=== PATIENT | male | born 1990 | race Caucasian/White ===

== ENCOUNTER 2020-07-19 01:11 | Emergency (ER) | payer OTHER ==
[~2020-07-19] VITALS: Ht 175.3 cm; Wt 79.4 kg
[2020-07-19 01:18] VITALS: BP 147/86
[2020-07-19] MEDS ORDERED: LIDOCAINE 1%-EPI 1:100,000 20 ML VIAL TP ONE (01:30)
[2020-07-19] MEDS ORDERED: TDAP [DIPH/PERTUSSIS/TET] 0.5 ML VIAL IM ONE ×2 (01:30→02:18)
[2020-07-19] MEDS ORDERED: LIDOCAINE MPF 1%-EPI 1:200,000 30 ML VIAL IJ ONE (01:32)
[2020-07-19] MEDS ORDERED: ACETAMINOPHEN 325 MG TABLET ONE (02:17)
[2020-07-19] MEDS ORDERED: ACETAMINOPHEN 325 MG TABLET PO ONE (02:30)
[2020-07-19] MEDS ORDERED: KETOROLAC TROMETHAMINE INJ 60 MG/2 ML VIAL IM ONE ×2 (02:46→03:00)
--- NOTE | 2020-07-19 02:53 | NUR ---
Patient discharged to home in stable condition. Written and verbal after care instructions given. Patient verbalizes understanding of instruction.
== END 2020-07-19 03:50 | disposition home or self-care (01) ==
LOC: ER 01:13
DX: S01.81XA Laceration without foreign body of other part of head, initial encounter (principal); W22.8XXA Striking against or struck by other objects, initial encounter; Y93.89 Activity, other specified; Y92.89 Other specified places as the place of occurrence of the external cause; Y99.8 Other external cause status
CPT/HCPCS: 12053; 70450; 90471; 90715; 96372; 99284; J1885; J3490

== ENCOUNTER 2021-12-10 12:55 | Inpatient (IN) | payer OTHER ==
[~2021-12-10] VITALS: Ht 175.3 cm; Wt 69.9 kg
--- NOTE | 2021-12-10 12:55 | NUR ---
PT BIBRA 99 FROM HOME C/O OVERDOSE UNKNOWN DRUG POSSIBLY QUETIAPINE AND BUPROPION. PT IS AAOX0, NOT IN RESPIRATORY DISTRESS, HOOKED TO V/S MONITOR, KEPT RESTED AND OCMFORTABLE. SITTER AT BEDSIDE FOR 1 TO 1. WILL CONTINUE TO MONITOR.
--- NOTE | 2021-12-10 13:02 | NUR ---
SEEN AND EXAMINED BY .
--- NOTE | 2021-12-10 13:15 | NUR ---
IV LINE ESTABLISHED BLOOD DRAWN AND SENT TO LAB.
[2021-12-10] MEDS ORDERED: SODIUM BICARBONATE SYR 50 MEQ/50 ML DISP.SYRIN ONE ×3 (13:18→14:28)
--- NOTE | 2021-12-10 13:24 | NUR ---
URINE SPECIMEN COLLECTED AND SENT TO LAB.
[2021-12-10] MEDS ORDERED: SODIUM BICARBONATE SYR 50 MEQ/50 ML DISP.SYRIN IV ONE ×3 (13:30→14:30)
[2021-12-10 13:45] LABS: BASOPHILS # (AUTO) 0.1 K/uL (0.0-0.2); BASOPHILS % (AUTO) 0.6 % (0.0-2.0); EOSINOPHILS % (AUTO) 0.1 % (0.0-6.0); HEMATOCRIT 46 % (39-51); HEMOGLOBIN 15.9 g/dL (13.5-17.5); LYMPHOCYTES # (AUTO) 1.8 K/uL (0.8-4.8); LYMPHOCYTES % (AUTO) 19.7 % (20.0-44.0); MEAN CORPUSCULAR HGB CONC 35 g/dl (31.0-36.0); MEAN CORPUSCULAR VOLUME 92 fL (80-96); MONOCYTES # (AUTO) 0.4 K/uL (0.1-1.30); MONOCYTES % (AUTO) 4.9 % (2.0-12.0); NEUTROPHILS # (AUTO) 6.7 K/uL (1.8-8.9); NEUTROPHILS % (AUTO) 74.7 % (43.0-81.0); PLATELET COUNT (AUTO) 420 K/uL (150-450); RED BLOOD CELL COUNT(AUTO) 4.97 MIL/uL (4.5-6.0)
[2021-12-10 13:53] LABS: BILIRUBIN,URINE NEGATIVE (NEGATIVE); COLOR,URINE YELLOW (YELLOW); LEUKOCYTE ESTERASE ,URINE NEGATIVE (NEGATIVE); NITRITE, URINE NEGATIVE (NEGATIVE); PROTEIN,URINE NEGATIVE (NEGATIVE); UGLUCOSE NEGATIVE (NEGATIVE); UROBILINOGEN,URINE 0.2 EU/dL (0.2)
[2021-12-10 13:54] LABS: RBC,URINE NONE SEEN /HPF (0-2); SQUAMOUS EPITHELIAL CELL,UR None Seen /HPF (None Seen); WBC,URINE NONE SEEN /HPF (0-3)
[2021-12-10] MEDS ORDERED: LORAZEPAM INJ 2 MG/ML VIAL ONE ×2 (14:04→14:29)
[2021-12-10 14:09] LABS: CALCIUM, SERUM 9.5 mg/dL (8.5-10.1); CREATININE 1.2 mg/dL (0.6-1.3); POTASSIUM 3.7 mmol/L (3.5-5.1)
--- NOTE | 2021-12-10 14:14 | NUR ---
CALLED POISON CONTROL AND SPOKE WITH YUSUF. SHE RECOMMENDS CONTINOUSLY MONITORING FOR 24 HOURS, GIVING BENZO MEDICATION FOR THE AGITATION, GIVING SODIUM BICARB AND REPEATING EKGS AFTER EACH DOSE. STOP AFTER 3 DOSES OF SODIUM BICARB. CONTINOUSLY REPEAT EKGS EVERY 2 HOURS. IF ARRHYTHMIA DEVELOPS OR QRSd BECOMES 130-140, CALL BACK POISON CONTROL FOR ADDITIONAL AND ALTERNATIVE ADVICE.
[2021-12-10 14:15] LABS: ALBUMIN 4.5 g/dL (3.4-5.0); BILIRUBIN,DIRECT 0.1 mg/dL (0.0-0.2); BILIRUBIN,TOTAL 0.5 mg/dL (0.2-1.0); TOTAL PROTEIN, SERUM 7.6 g/dL (6.4-8.2)
--- NOTE | 2021-12-10 14:26 | NUR ---
COVID TEST COLLECTED AND SENT
[2021-12-10] MEDS ORDERED: LORAZEPAM INJ 2 MG/ML VIAL IV ONE ×2 (14:30)
--- NOTE | 2021-12-10 14:41 | NUR ---
POISON CONTROL CALLED AND SUGGESTED A HEAD CT AND CPK BECAUSE PT WAS FOUND DOWN AND IS AGITATED.
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
--- NOTE | 2021-12-10 15:28 | NUR ---
SUBMITTED MOVE PACKET AND CALLED NURSING SUP FOR BED
--- NOTE | 2021-12-10 15:32 | NUR ---
RT AT BEDSIDE
[2021-12-10 15:53] LABS: ABG BASE EXCESS 0.2 mmol/L; ABG PCO2 29.9 mmHg (35.0-45.0); ABG PH 7.491 (7.350-7.450); ABG PO2 93.4 mmHg (75.0-100.0); COHb 0.6 % (0.5-1.5); MetHb 0.2 % (0.0-1.5); O2Hb 96.9 % (94.0-97.0); SITE, ABG Other; VENT MODE, BG ROOM AIR
--- NOTE | 2021-12-10 16:10 | NUR ---
RT VENOUS BLOOD GAS DONE, BLOOD SAMPLE DRAWN BY RN. RESULTS GIVEN TO DR SALMERON.
[2021-12-10] MEDS ORDERED: MAG HYDROX/AL HYDROX/SIMETH 30 ML UDC PO PRN (17:00)
[2021-12-10] MEDS ORDERED: LORAZEPAM INJ 2 MG/ML VIAL IV PRN (17:00)
[2021-12-10] MEDS ORDERED: Z GUARD REMEDY 4 OZ OINT TP PRN (17:00)
[2021-12-10] MEDS ORDERED: IV NS 0.9% 1,000 ML IV PRN (17:00)
[2021-12-10] MEDS ORDERED: ACETAMINOPHEN 325 MG TABLET PO PRN (17:00)
[2021-12-10] MEDS ORDERED: ONDANSETRON HCL/PF 4 MG/2 ML VIAL IVP PRN (17:00)
--- NOTE | 2021-12-10 17:33 | NUR ---
FATHER, ERA CALLED AND GIVEN UPDATES RE PATIENT STATUS
--- NOTE | 2021-12-10 17:38 | NUR ---
SWALLOW TEST CONDUCTED, PT ABLE TO FOLLOW COMMANDS AND TOLERATED WATER WELL.
[2021-12-10] MEDS ORDERED: DIVALPROEX SODIUM 500 MG TABLET.DR PO ONE (17:42)
[2021-12-10] MEDS: DIVALPROEX SODIUM 500 MG TABLET.DR PO SCH (17:44)
[2021-12-10] MEDS: IV NS 0.9% 1,000 ML IV PRN (19:22)
--- NOTE | 2021-12-10 20:04 | NUR ---
CALLED NURSE SUP FOR ICU BED, NO BED IS AVAILABLE FOR NOW
[2021-12-10 20:19] LABS: CALCIUM, SERUM 9.1 mg/dL (8.5-10.1); CREATININE 1.1 mg/dL (0.6-1.3); POTASSIUM 3.5 mmol/L (3.5-5.1)
[2021-12-10 21:24] LABS: BACTERIA,URINE None seen /HPF (None Seen)
--- NOTE | 2021-12-10 21:32 | NUR ---
UPDATED POISON CONTROL ON PT'S STATUS. POISON CONTROL WILL CALL AGAIN TOMORROW FOR UPDATES.
--- NOTE | 2021-12-10 22:20 | NUR ---
PT AWAKE AND ALERT IN NO APPARENT DISTRESS. ALL NEEDS MET. PT REMIAN ON STUDENT NURSE AND PULSE OX AND V/S STABLE.
[2021-12-11] MEDS ORDERED: OLANZAPINE 10 MG VIAL IM ONE (05:06)
[2021-12-11] MEDS: OLANZAPINE 10 MG VIAL IM PRN ×2 (05:10→22:56)
--- NOTE | 2021-12-11 07:28 | NUR ---
WASH HOUSE SUPERVISOR AT PT'S BEDSIDE
[2021-12-11 07:37] LABS: BASOPHILS % (AUTO) 0.5 % (0.0-2.0); EOSINOPHILS % (AUTO) 0.2 % (0.0-6.0); HEMATOCRIT 44 % (39-51); HEMOGLOBIN 15.3 g/dL (13.5-17.5); LYMPHOCYTES % (AUTO) 25.4 % (20.0-44.0); MEAN CORPUSCULAR HGB CONC 35 g/dl (31.0-36.0); MEAN CORPUSCULAR VOLUME 91 fL (80-96); MONOCYTES # (AUTO) 0.4 K/uL (0.1-1.30); MONOCYTES % (AUTO) 5.2 % (2.0-12.0); NEUTROPHILS # (AUTO) 5.4 K/uL (1.8-8.9); NEUTROPHILS % (AUTO) 68.7 % (43.0-81.0); PLATELET COUNT (AUTO) 384 K/uL (150-450); RED BLOOD CELL COUNT(AUTO) 4.87 MIL/uL (4.5-6.0); WHITE BLOOD COUNT (AUTO) 7.8 K/uL (4.3-11.0)
--- NOTE | 2021-12-11 08:05 | NUR ---
BREAKFAST PROVIDED, TOLERATED WELL
[2021-12-11 08:07] LABS: CALCIUM, SERUM 9.5 mg/dL (8.5-10.1); CREATININE 1.3 mg/dL (0.6-1.3); MAGNESIUM 2.1 mg/dL (1.8-2.4); PHOSPHORUS 3.5 mg/dL (2.5-4.9); POTASSIUM 3.5 mmol/L (3.5-5.1)
[2021-12-11] MEDS ORDERED: QUET25TA PO (08:28)
[2021-12-11] MEDS ORDERED: BUPR-319 PO (08:28)
[2021-12-11] MEDS ORDERED: PANTOPRAZOLE 40 MG VIAL ONE (09:14)
[2021-12-11] MEDS ORDERED: NORMAL SALINE FLUSH 10 ML SYR ONE (09:15)
[2021-12-11] MEDS ORDERED: DIVALPROEX SODIUM 500 MG TABLET.DR PO ONE ×3 (09:15→19:27)
[2021-12-11] MEDS: PANTOPRAZOLE 40 MG VIAL IV SCH (09:22)
[2021-12-11] MEDS ORDERED: LORAZEPAM INJ 2 MG/ML VIAL ONE ×2 (09:22→15:39)
[2021-12-11] MEDS: DIVALPROEX SODIUM 500 MG TABLET.DR PO SCH ×4 (09:22→20:30)
[2021-12-11] MEDS: IV NS 0.9% 1,000 ML IV PRN ×3 (15:00→21:29)
[2021-12-11] MEDS: LORAZEPAM INJ 2 MG/ML VIAL IV PRN ×2 (15:46→21:47)
--- NOTE | 2021-12-11 17:05 | NUR ---
PT RESTING COMFORTABLY IN BED, VSS
--- NOTE | 2021-12-11 17:43 | NUR ---
GOING TO 314.2 AFTER SHIFT AWAITING SITTER AVAILABILITY.
--- NOTE | 2021-12-11 19:35 | NUR ---
PT RESTING COMFRTABLY IN BED BREATHING EVEN AND UNLABORED. PT REMAINS ON MONITOR AND ALL V/S STABLE. PO DEPAKOTED HELD DUE TO PT SEDATION.
--- NOTE | 2021-12-11 20:35 | NUR ---
PT WOKE UP AND REQUESTED PRESCRIBED DEPAKOTE. PT TOLERATED PO WELL.
--- NOTE | 2021-12-11 20:42 | NUR ---
REPORT GIVEN TO PATRICIA
[2021-12-11 21:00] VITALS: BP 137/90
--- NOTE | 2021-12-11 21:09 | NUR ---
PT TRANSPORTED TO ROOM 314 VIA GURNEY WITHOUT INCIDENT
[2021-12-11 22:00] VITALS: BP 137/90
--- NOTE | 2021-12-11 22:00 | NUR ---
MS/RN ADMITTING NOTE RECEIVED REPORT FROM SUPERVISOR P[employer]LET [employer]ARM NATALIE. PATIENT ARRIVED TO UNIT VIA GURNEY AND 2 STAFF MEMBERS. PATIENT ABLE TO AMBULATE TO BED WITH STEADY GAIT. PATIENT IS BEING ADMITTED WITH DX OF OVERDOSE AND ACUTE TOXIC ENCEPHALOPATHY. PATIENT IS ALERT AND ORIENTED X 3. ABLE TO MAKE NEEDS KNOWN. DENIES PAIN AT THIS TIME. CONTINUES ON ROOM AIR WITH NO S/SX OF RESPIRATORY DISTRESS NOTED. IV ACCESS TO RIGHT FOREARM #18G AND RIGHT AC #18G BOTH INTACT, PATENT AND SALINE LOCKED. SKIN CHECK PERFORMED ON ADMISSION WITH NO SKIN ISSUES NOTED. VS: BP 137/90 HR 72 RR 18 T 97.8 O2 SAT 100% RA. CONTINUES ON SEIZURE PRECAUTIONS. CONTINUES ON SOFT DIET WITH NO S/SX OF ASPIRATION NOTED. PATIENT ENDORSES FEELING ANXIOUS - REQUESTING MEDICATION. WILL ADMINISTER PER MD ORDERS. 1 TO 1 SITTER AT BEDSIDE. PATIENT ORIENTED TO ROOM, CALL LIGHT AND UNIT. CALL LIGHT WITHIN REACH. ASPIRATION, FALL AND SAFETY PRECAUTIONS MAINTAINED. WILL CONTINUE TO MONITOR.
--- NOTE | 2021-12-11 22:06 | NUR ---
PT IS ADMITTED TO MED/SURG PER . Addendum: 12/11/21 at 2206 by PATRICIA TINSLEY RN Amended: Links added.
[2021-12-11] MEDS: NICOTINE PATCH (7MG) 7 MG PATCH.TD24 TD SCH (22:42)
[2021-12-12] MEDS: IV NS 0.9% 1,000 ML IV PRN ×2 (03:36→11:18)
--- NOTE | 2021-12-12 06:10 | NUR ---
MS/RN CLOSING NOTE PATIENT CURRENTLY RESTING IN BED. AWAKE, ALERT AND ORIENTED X 3. ABLE TO MAKE NEEDS KNOWN. DENIES PAIN AT THIS TIME. CONTINUES ON ROOM AIR WITH NO S/SX OF RESPIRATORY DISTRESS NOTED. IV ACCESS TO RIGHT AC #20G INTACT AND PATENT. CONTINUES ON IVF NS @ 125ML/HR. CONTINUES ON SOFT DIET WITH NO S/SX OF ASPIRATION NOTED. CONTINUES ON 1 TO 1 SITTER. CALL LIGHT WITHIN REACH. ASPIRATION, FALL AND SAFETY PRECAUTIONS MAINTAINED. WILL ENDORSE PLAN OF CARE TO ONCOMING SHIFT.
[2021-12-12] MEDS: LORAZEPAM INJ 2 MG/ML VIAL IV PRN ×3 (06:15→18:49)
[2021-12-12 07:07] LABS: CALCIUM, SERUM 8.3 mg/dL (8.5-10.1); CREATININE 1.1 mg/dL (0.6-1.3); POTASSIUM 3.6 mmol/L (3.5-5.1)
--- NOTE | 2021-12-12 07:19 | NUR ---
MS RN OPENING NOTE PATIENT ALERT AND ORIENTED X 3. ABLE TO MAKE NEEDS KNOWN. DENIES PAIN AT THIS TIME. ON ROOM AIR WITH NO S/SX OF RESPIRATORY DISTRESS NOTED. IV ACCESS TO RIGHT AC #20G ON IVF NS @ 125ML/HR. ON 1 TO 1 SITTER. CALL LIGHT WITHIN REACH. ASPIRATION, FALL AND SAFETY PRECAUTIONS MAINTAINED. BED ON LOWEST LOCKED POSITION WITH SIDERAILS UP AND PADDED. WILL CONTINUE TO MONITOR PATIENT.
[2021-12-12 08:00] VITALS: BP 110/72
[2021-12-12] MEDS: PANTOPRAZOLE 40 MG VIAL IV SCH (08:22)
[2021-12-12] MEDS: NICOTINE PATCH (7MG) 7 MG PATCH.TD24 TD SCH (08:22)
[2021-12-12] MEDS: DIVALPROEX SODIUM 500 MG TABLET.DR PO SCH ×3 (08:22→17:04)
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
--- NOTE | 2021-12-12 13:30 | NUR ---
SS Note: SW referred pt. to [facility] [[address] [place] [address] FAX:[phone]] for inpatient psychiatric treatment. There are currently no beds available, waiting for discharges. Emir from [facility] will update once there is a bed.
[2021-12-12] MEDS: OLANZAPINE 10 MG VIAL IM PRN (14:07)
[2021-12-12 16:00] VITALS: BP 126/53
--- NOTE | 2021-12-12 19:02 | NUR ---
MS RN CLOSING NOTE PATIENT ALERT AND ORIENTED X 3. ABLE TO MAKE NEEDS KNOWN. DENIES PAIN AT THIS TIME. ON ROOM AIR WITH NO S/SX OF RESPIRATORY DISTRESS NOTED. IV ACCESS TO RIGHT AC #20G PATENT AND INTACT. ON 1 TO 1 SITTER. AWAITING POSSIBLE TRANSFER TO PSYCH FACILITY ONCE AVAIILABLE. SISTER AND PATIENT AWARE. CALL LIGHT WITHIN REACH. ASPIRATION, FALL AND SAFETY PRECAUTIONS MAINTAINED. BED ON LOWEST LOCKED POSITION WITH SIDERAILS UP AND PADDED. WILL ENDORSE TO NEXT SHIFT FOR CONTINUITY OF CARE.
--- NOTE | 2021-12-12 19:40 | NUR ---
MS RN OPENING NOTES PATIENT RECEIVED IN BED, AAOX3, WITH SITTER AT BEDSIDE; PATIENT BREATHING EVEN AND UNLABORED; NO SOB NOTED, NO DISTRESS NOTED; PATIENT DENIES PAIN AND IS ABLE TO MAKE NEEDS KNOWN; PATIENT TOLERATING ROOM AIR WELL; RFA 18G & RAC #18G BOTH INTACT AND PATENT, FLUSHING WELL; POSSIBLE D/C TONIGHT, PATIENT AND FAMILY AWARE; CHARGE NURSE AWARE; SAFETY PRECAUTIONS IMPLEMENTED, BED LOCKED IN LOW POSITION; CALL LIGHT WITHIN REACH; WILL CONT TO MONITOR
--- NOTE | 2021-12-12 20:38 | NUR ---
MS RN NOTES UPDATED MOTHER ANALIA [phone], REGARDING PATIENTS POSSIBLE D/C STATUS. MOTHER AWARE AND VERBALIZED TO CALL HER FOR UPDATES AT WHATEVER TIME; CHARGE NURSE AWARE
[2021-12-13] MEDS: LORAZEPAM INJ 2 MG/ML VIAL IV PRN ×2 (01:04→07:56)
--- NOTE | 2021-12-13 06:56 | NUR ---
MS RN CLOSING NOTES PATIENT IN BED, AAOX3, RESTING, WITH SITTER AT BEDSIDE; PATIENT BREATHING EVEN AND UNLABORED; NO SOB NOTED, NO DISTRESS NOTED; PATIENT DENIES PAIN AND IS ABLE TO MAKE NEEDS KNOWN; PATIENT TOLERATING ROOM AIR WELL; RFA 18G & RAC #18G BOTH INTACT AND PATENT, FLUSHING WELL; PATIENT WAS NOT DISCHARGED LAST NIGHT, AWAITING FOR TRANSPORT, PER FACILITY NO TRANSPORT AVAILABLE; DR. HERNANDEZ AWARE AND VERBALIZED TO CHARGE NURSE HE WILL SEE PATIENT TODAY PRIOR TO DISCHARGE; PATIENT AND FAMILY AWARE; CHARGE NURSE AWARE; ALL NEEDS RENDERED; SAFETY PRECAUTIONS IMPLEMENTED, BED LOCKED IN LOW POSITION; CALL LIGHT WITHIN REACH; WILL ENDORSE STARLA TO ONCOMING SHIFT
--- NOTE | 2021-12-13 07:30 | NUR ---
RN OPENING NOTE PATIENT IN BED, AAOX3, RESTING, WITH 1:1 SITTER AT BEDSIDE; PATIENT BREATHING EVEN AND NON-LABORED; NO SOB NOTED, NO DISTRESS NOTED; PATIENT DENIES PAIN AND IS ABLE TO MAKE NEEDS KNOWN; PATIENT TOLERATING ROOM AIR WELL; RFA 18G & RAC #18G , DR. HERNANDEZ STATED HE WILL SEE PATIENT TODAY PRIOR TO DISCHARGE. ALL NEEDS RENDERED; SAFETY PRECAUTIONS IMPLEMENTED, BED LOCKED IN LOW POSITION; CALL LIGHT WITHIN REACH . ASSIST/ MONITOR
[2021-12-13] MEDS: DIVALPROEX SODIUM 500 MG TABLET.DR PO SCH ×3 (08:30→16:20)
[2021-12-13] MEDS: NICOTINE PATCH (7MG) 7 MG PATCH.TD24 TD SCH (08:30)
[2021-12-13 08:43] LABS: CALCIUM, SERUM 8.9 mg/dL (8.5-10.1)
[2021-12-13] MEDS ORDERED: PANTOPRAZOLE 40 MG TABLET.DR PO SCH (09:00)
[2021-12-13] MEDS ORDERED: LORAZEPAM 0.5 MG TABLET PO STA ×2 (12:24→16:09)
--- NOTE | 2021-12-13 12:29 | NUR ---
RN NOTE- AMBULANCE LATE. PT ANXIOUS. IV SITE DC'D ALREADY. ONE TIME ORDER OBTAINED FROM ANITA VERDUZCO. ATIVAN 0.5 MG PO X ONE DOSE.
[2021-12-13] MEDS ORDERED: NICO-760 TD (13:18)
[2021-12-13] MEDS ORDERED: DIVA500T2 PO (13:18)
--- NOTE | 2021-12-13 14:22 | NUR ---
TRANSPORTATION: [facility] CONTACTED [facility] ([phone]) WHO STATED THAT HE ARRANGE TRANSPORTATION AT 4PM THROUGH [facility] ([phone]). 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
--- NOTE | 2021-12-13 18:17 | NUR ---
RN NOTE- PT DC AT THIS TIME TO [facility]. REPORT CALLED TO FACILITY. VS STABLE. ID [id number] REMOVED, IV [id number]. ESCORTED OFF UNIT BY STAFF
== END 2021-12-13 18:53 | DRG 812 ==
LOC: ER 12:57 → TRANSITION 17:10 → MED 12-11 20:33
PROVIDERS: ADMIT Nurse Practitioner Acute Care; ATTEND Registered Nurse
DX: T43.591A Poisoning by other antipsychotics and neuroleptics, accidental (unintentional), initial encounter (principal); G92.9 Unspecified toxic encephalopathy; F31.9 Bipolar disorder, unspecified; F19.10 Other psychoactive substance abuse, uncomplicated; Y92.9 Unspecified place or not applicable; T43.291A Poisoning by other antidepressants, accidental (unintentional), initial encounter; Z20.822 Contact with and (suspected) exposure to COVID-19; F41.9 Anxiety disorder, unspecified
CPT/HCPCS: 36415; 36600; 70450-TC; 80048-TC; 80076-TC; 81001; 82550-TC; 82553; 82803-TC; 83735-TC; 84100-TC; 85025-TC; 87081-TC; A4216; C9113; C9803; G0378; G0480; J2060; J3490; J7030